=== PATIENT | male | born 1995 | race African-American/Black ===

== ENCOUNTER 2023-12-31 13:16 | Emergency (ER) | payer OTHER ==
[~2023-12-31] VITALS: Ht 182.9 cm; Wt 99.0 kg
[2023-12-31 13:21] VITALS: O2SAT 99
[2023-12-31 14:57] VITALS: BP 132/78; PULSE 81; RESP 18; TEMP 98.2
== END 2023-12-31 16:13 | disposition home or self-care (01) ==
LOC: ER 13:16
DX: U07.1 COVID-19 (principal)
CPT/HCPCS: 87426; 99283

== ENCOUNTER 2024-01-18 12:11 | Emergency (ER) | payer MEDICAID, OTHER ==
[~2024-01-18] VITALS: Ht 180.3 cm; Wt 91.0 kg
[2024-01-18 12:19] VITALS: O2SAT 97
[2024-01-18] MEDS: ACETAMINOPHEN 325MG TABLET PO ONE (13:15)
[2024-01-18] MEDS ORDERED: LIDO700A15 TP (13:52)
[2024-01-18] MEDS ORDERED: NAPR-1176 MT (13:52)
[2024-01-18 15:26] VITALS: BP 136/67; PULSE 76; RESP 18; TEMP 98.2
== END 2024-01-18 15:27 | disposition home or self-care (01) ==
LOC: ER 12:11
DX: S80.01XA Contusion of right knee, initial encounter (principal); S90.31XA Contusion of right foot, initial encounter; W50.2XXA Accidental twist by another person, initial encounter; Y93.89 Activity, other specified; Y92.89 Other specified places as the place of occurrence of the external cause; Y99.8 Other external cause status
CPT/HCPCS: 73562; 73610; 99284

== ENCOUNTER 2024-05-29 13:56 | Emergency (ER) | payer MEDICAID ==
[~2024-05-29] VITALS: Ht 182.9 cm; Wt 113.0 kg
[~2024-05-29 13:56] MED LIST: LIDO700A15 TP; NAPR-1176 MT
[2024-05-29 14:09] VITALS: O2SAT 99
[2024-05-29 14:15] VITALS: BP 94/79; TEMP 98.3; O2SAT 100
[2024-05-29 16:08] LABS: CHLORIDE 107 mEq/L (98-107); SODIUM 140 mEq/L (136-145)
[2024-05-29 16:09] LABS: BASOPHILS % 0.6 % (0.0-2.0); CARBON DIOXIDE 28 mEq/L (21-32); DIFFERENTIAL COMMENT 0; EOSINOPHILS % 0.5 % (0.0-5.0); HEMATOCRIT. 47.2 % (42.0-52.0); HEMOGLOBIN. 15.6 g/dL (14.0-18.0); MEAN CORPUSCULAR HEMOGLOBIN 30.6 pg (28.0-32.0); MEAN CORPUSCULAR HGB CONC 33.1 g/dL (31.0-37.0); MEAN CORPUSCULAR VOLUME 92.5 fL (80.0-94.0); MEAN PLATELET VOLUME 7.9 fl (7.4-10.4); MONOCYTES % 9.6 % (2.0-8.0); NEUTROPHILS % 55.3 % (40.0-76.0); PLATELET 353 x1000/uL (130-400); RED CELL DISTRIBUTION WIDTH 13.5 % (11.6-14.6); WHITE BLOOD COUNT 6.3 x1000/uL (4.5-11.0)
[2024-05-29 16:13] LABS: CREATININE 1.1 mg/dL (0.6-1.3)
[2024-05-29 16:14] LABS: GLUCOSE 85 mg/dL (70-105); UREA NITROGEN BLOOD 10 mg/dL (9-23)
[2024-05-29] MEDS ORDERED: ALBU18HF2 IH (17:39)
[2024-05-29] MEDS: IPRATROPIUM BROMIDE (0.02%) 0.5MG/2.5ML NEB HHN STA (17:46)
[2024-05-29] MEDS: ALBUTEROL (0.083%) 2.5MG/3ML NEB HHN STA (17:46)
[2024-05-29 17:57] VITALS: PULSE 80; RESP 20
[2024-05-29] MEDS ORDERED: IOHEXOL-350 100 ML BOTTLE ONE (20:28)
== END 2024-05-29 18:39 | disposition home or self-care (01) ==
LOC: ER 13:56
DX: J20.9 Acute bronchitis, unspecified (principal)
CPT/HCPCS: 80048; 85025; 85379; 36415; 71045; 71275; 94640; 99285; Q9967; Z7610 ×3